=== PATIENT | male | born 1945 | race Caucasian/White ===

== ENCOUNTER 2018-01-05 09:45 | Emergency (ER) | payer OTHER, MEDICARE ==
[~2018-01-05] VITALS: Ht 177.8 cm; Wt 72.6 kg
[~2018-01-05 09:45] MED LIST: FLOMAX0.4 M1 PO; OXYCODONE5 MG PO; ZOLPIDEM TART12.5 MG PO
--- NOTE | 2018-01-05 10:19 | ED CARDIAC/CP/PALPITATIONS ---
History of Present Illness General Chief Complaint: Chest Pain Stated Complaint: CHEST PAIN Source: patient, old records Exam Limitations: no limitations Vital Signs & Intake/Output Vital Signs & Intake/Output Vital Signs Date Time Temp Pulse Resp B/P B/P Pulse O2 O2 Flow FiO2 Mean Ox Delivery Rate 01/05 1552 97.8 78 18 122/72 99 01/05 1213 97.5 76 18 91/62 98 01/05 0954 98.4 82 18 106/68 98 Room Air Allergies Coded Allergies: NO KNOWN ALLERGIES (05/14/11) Reconcile Medications Amiodarone (Cordarone) 200 MG TAB 0.5 TAB PO DAILY HEART (Reported) Apixaban (Eliquis) 5 MG TABLET 1 TAB PO BID BLOOD THINNER (Reported) Aspirin (Ecotrin*) 81 MG TABLET.DR 1 TAB PO DAILY HEART HEALTH (Reported) Bumetanide 2 MG TABLET 1 TAB PO DAILY UNKNOWN (Reported) Metoprolol Succ XL (Toprol XL) 25 MG TAB 3 TAB PO DAILY HEART (Reported) Pantoprazole Sodium 40 MG TABLET.DR 1 TAB PO DAILY GI (Reported) Potassium Chloride 20 MEQ TAB.ER.PRT 2 TAB PO DAILY SUPPLEMENT (Reported) Pravastatin Sodium (Pravachol) 20 MG TABLET 1 TAB PO DAILY CHOLESTEROL ( Reported) Tamsulosin HCl (Flomax) 0.4 MG CAP.ER.24H 1 CAP PO DAILY BPH (Reported) Triage Note: C/O LEFT SIDED CHEST TIGHTNESS SINCE 444, DENIES DIZZINESS OR SOB. REPORTS HE HAS A CATHETER IN HIS LEFT CHEST, DRAINS FLUID FROM HEART AND LUNGS QOD BY [facility]. 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 yes Onset: Abrupt Duration: hour(s):, gone now, intermittent Timing: multiple episodes today Quality/Severity: severe, sharp, stabbing Radiation: no radiation Activities at Onset: rolling over in bed HPI: Patient presents for evaluation of 3 episodes of chest pain since 445 this morning. Patient states the pain began after rolling over in bed. The pain lasted about 10-12 seconds and then subsided. He went to breakfast but then while driving home felt a repeat of the pain. This episode lasted about 15-20 seconds. He then began to take a shower and had a third episode, or tries as mild and lasting a much briefer duration. Patient denies any associated diaphoresis or radiation of the pain to the jaw or left upper extremity. Past History Travel History Traveled to [place] past 21 day No Medical History Any Pertinent Medical History? see below for history Cardiovascular: hypertension, hyperlipidemia Musculoskeletal: osteoarthritis Tetanus Vaccine: 11/09/13 Surgical History Surgical History: thoracostomy Psychosocial History What is your primary language Congolese Tobacco Use: Never used ETOH Use: occasional use Family History Hx Contributory? No Review of Systems Review of Systems Constitutional: Reports: no symptoms. EENTM: Reports: no symptoms. Respiratory: Reports: no symptoms. Cardiovascular: Reports: chest pain. GI: Reports: no symptoms. Genitourinary: Reports: no symptoms. Musculoskeletal: Reports: no symptoms. Skin: Reports: no symptoms. Neurological/Psychological: Reports: no symptoms. Hematologic/Endocrine: Reports: no symptoms. Immunologic/Allergic: Reports: no symptoms. All Other Systems: Reviewed and Negative Physical Exam Physical Exam Cardiovascular: see below Comments: Gen.: Well-nourished, well-developed, no acute respiratory distress. Head: Normocephalic, atraumatic. Eyes: Normal inspection bilaterally Ears: Normal inspection bilaterally Nose: Normal inspection Throat/mouth : Moist mucosa Neck: Supple, full range of motion, no goiter Heart: Regular rate and rhythm, no murmurs rubs or gallops Lungs: Clear to auscultation over the right chest, decreased breath sounds the base of the left chest posteriorly Chest: Nontender Back: Normal range of motion Abdomen: Soft, nontender, nondistended, normal bowel sounds Extremities: Normal range of motion grossly, equal radial pulses, no cyanosis clubbing or edema Neurologic: Cranial nerves grossly intact, speech is clear Skin: warm and dry Psychiatric: Calm, cooperative, no apparent delusions or hallucinations Core Measures ACS in differential dx? No CVA/TIA Diagnosis No Sepsis Present: No Sepsis Focused Exam Completed? No Progress Differential Diagnosis: CT, unstable angina, pulmonary embolism, aortic dissection, pneumonia, pneumothorax, pleural effusion, musculoskeletal strain Plan of Care: Orders Procedure Date/time Status TROPONIN LEVEL 01/05 1345 Complete EKG 01/05 1345 Active Add-on Test (ER Only) 01/05 1043 Active D-DIMER 01/05 1019 Complete TROPONIN LEVEL 01/05 0947 Complete COMPREHENSIVE METABOLIC PANEL 01/05 0947 Complete CBC WITHOUT DIFFERENTIAL 01/05 0947 Complete EKG 01/05 0945 Active Laboratory Tests 01/05/18 1521: Troponin I < 0.01 01/05/18 1019: Anion Gap 9, Estimated GFR > 60, BUN/Creatinine Ratio 25.5 H, Glucose 110 H, Calcium 8.8, Total Bilirubin 1.8 H, AST 52, ALT 51, Alkaline Phosphatase 252 H , Troponin I < 0.01, Total Protein 6.8, Albumin 3.4 L, Globulin 3.4, Albumin/ Globulin Ratio 1.0 L, D-Dimer High Sensitivty 544 H, CBC w Diff NO MAN DIFF REQ, RBC 3.79 L, MCV 85.7, MCH 28.5, MCHC 33.2, RDW 19.7 H, MPV 9.3, Gran % 76.5 H, Lymphocytes % 10.2 L, Monocytes % 11.8 H, Eosinophils % 1.2, Basophils % 0.3, Absolute Granulocytes 5.2, Absolute Lymphocytes 0.7 L, Absolute Monocytes 0.8 H, Absolute Eosinophils 0.1, Absolute Basophils 0 Diagnostic Imaging: Discussed w/RAD: CT Scan. Radiology Impression: no acute abnormality CXR Impression: PATIENT: BRUCE SPENCE PRESENT AGE: 72 PATIENT ACCOUNT NO: [id number] : 46 LOCATION: [facility] ORDERING PHYSICIAN: Salty SALINAS SERVICE DATE: 01/05/18 EXAM TYPE: RAD - XRY-CHEST XRAY, TWO VIEWS EXAMINATION: XR CHEST CLINICAL INFORMATION: Chest pain. Assess for pneumonia or congestive heart failure. COMPARISON: There are no recent prior studies available for comparison. TECHNIQUE: Frontal and lateral views of the chest were obtained. FINDINGS: The lungs are hyperexpanded with flattening of the hemidiaphragms and retrosternal air trapping. There are coarse interstitial markings in the lungs bilaterally. There is pleural thickening versus pleural effusion at the left base, and there is a catheter/tube coiled left lower chest anteriorly, which appears to extend into the left pleural region. The cardiac silhouette is normal in size, but has a slightly globular configuration. Apparent prominence of the left hilum may be due to patient rotation. The central pulmonary vasculature appears normal. Median sternotomy wires and sequelae of CABG are demonstrated. There is a left atrial appendage clip. IMPRESSION: 1. There is a catheter/tube coiled in the left lower chest anteriorly which appears to extend into the pleural region. There is left pleural thickening/pleural loculation. Correlate with surgical history. 2. The cardiac silhouette is globular, but is normal in size. There are sequelae of prior median sternotomy and CABG. There is a left atrial appendage clip. DICTATED BY: Joss Cruz MD DATE/TIME DICTATED:01/05/181037 SCANNING TECH :NILAM DATE/TIME TRANSCRIBED:01/05/181037 CONFIDENTIAL, DO NOT COPY WITHOUT APPROPRIATE AUTHORIZATION. <Electronically signed in Other Vendor System> SIGNED BY: Joss Cruz MD 01/05/18 1055 Initial ED EKG: NSR, no ST T wave changes (INFERIORLY AND LATERALLY) Prior EKG: changed Comments: 01/05/2018 10:19:39 AM patient is pain-free currently. Patient states that when he is not having the episodes of pain he has no symptoms. 10:40AM PATIENT'S CASE DISCUSSED WITH DR. Burleson. HE HAD A NL ECHO IN AUGUST. Dr. Burleson denies that the patient is ever had a pericardial effusion. He feels given the clinical presentation that it is unlikely patient is having an acute coronary syndrome, pericardial effusion or aortic disease. However given his history felt it prudent to repeat an EKG and troponin. He has also suggested a d-dimer. After reviewing a prior, more recent EKG, Dr. Burleson confirms that the patient did have similar changes (inverted T waves and mild ST segment depressions inferiorly) on a prior EKG. 01/05/2018 12:12:50 PM I have updated Bruce on test results. I have likewise updated Dr. Burleson. Given the elevated d-dimer I will recommend CT to rule out PE along with repeat EKG and troponin. Patient is aware that [facility] has no CAT scan capability at this time and that he will be transferred to [facility] for the CTA. 01/05/2018 5:14:54 PM I have updated Bruce on test results. He offers no complaint at this time. Given the repeat EKG and troponin I feel he is now stable for outpatient management. His primary care physician and specialist. Departure Departure Disposition: HOME OR SELF CARE Condition: Stable Clinical Impression Primary Impression: Atypical chest pain Referrals: Yasmine FRAZIER,Efra Rhodes (PCP/Family) Additional Instructions: Continue your current medications. Follow-up with your primary care physician for reevaluation tomorrow. Return if any concerns or sudden worsening. Please note that there might be incidental findings in your evaluation that are unrelated to the current emergency department visit. Please notify your primary care doctor about this emergency department visit in order to obtain and review all of the testing performed so that these incidental findings can be monitored as needed. If you had an x-ray performed, please understand that some fractures or other findings may not be seen on the initial set of x-rays. If your symptoms persist you might need a repeat set of x-rays to check for such a fracture. If you had a laceration evaluated, please understand that foreign bodies such as glass or wood may not be visible to the naked eye or on plain x-rays. If the wound becomes red, swollen, increasingly more painful or if there is any drainage from the wound, please have it reevaluated by a physician for the possibility of a retained foreign body. If you're unable to follow up as outlined in the discharge instructions please return to the emergency department. Thank you for choosing the [facility] Emergency Department for your care. It was a pleasure to serve you today. Ab Peoples M.D. [facility] Departure Forms: Customer Survey General Discharge Information Critical Care Note Critical Care Note Critical Care Time: non-applicable
[2018-01-05 10:33] LABS: ABSOLUTE BASOPHIL COUNT 0 /CUMM (0.0-0.2); ABSOLUTE EOSINOPHIL COUNT 0.1 /CUMM (0.0-0.7); ABSOLUTE GRANULOCYTE CT 5.2 /CUMM (1.4-6.5); ABSOLUTE LYMPH COUNT 0.7 /CUMM (1.2-3.4); ABSOLUTE MONOCYTE COUNT 0.8 /CUMM (0.10-0.60); BASOPHIL % 0.3 % (0.0-2.0); EOSINOPHIL % 1.2 % (0-5); GRANULOCYTE % 76.5 % (42.2-75.2); HEMATOCRIT 32.5 % (42-52); MEAN CORPUSCULAR HGB 28.5 PG (27.0-31.0); MEAN CORPUSCULAR HGB CONC 33.2 G/DL (33.0-37.0); MEAN CORPUSCULAR VOLUME 85.7 FL (80.0-94.0); MEAN PLATELET VOLUME 9.3 FL (7.4-10.4); PLATELET COUNT 213 /CUMM (130-400); RBC DISTRIBUTION WIDTH 19.7 % (11.5-14.5); RED BLOOD CELL CT 3.79 /CUMM (4.70-6.10); WHITE BLOOD CELL COUNT 6.8 /CUMM (4.8-10.8)
--- NOTE | 2018-01-05 10:55 | RADIOLOGY REPORT ---
EXAMINATION: XR CHEST CLINICAL INFORMATION: Chest pain. Assess for pneumonia or congestive heart failure. COMPARISON: There are no recent prior studies available for comparison. TECHNIQUE: Frontal and lateral views of the chest were obtained. FINDINGS: The lungs are hyperexpanded with flattening of the hemidiaphragms and retrosternal air trapping. There are coarse interstitial markings in the lungs bilaterally. There is pleural thickening versus pleural effusion at the left base, and there is a catheter/tube coiled left lower chest anteriorly, which appears to extend into the left pleural region. The cardiac silhouette is normal in size, but has a slightly globular configuration. Apparent prominence of the left hilum may be due to patient rotation. The central pulmonary vasculature appears normal. Median sternotomy wires and sequelae of CABG are demonstrated. There is a left atrial appendage clip. IMPRESSION: 1. There is a catheter/tube coiled in the left lower chest anteriorly which appears to extend into the pleural region. There is left pleural thickening/pleural loculation. Correlate with surgical history. 2. The cardiac silhouette is globular, but is normal in size. There are sequelae of prior median sternotomy and CABG. There is a left atrial appendage clip.
[2018-01-05] MEDS ORDERED: AMIODARONE HCL200 M1 PO (11:03)
[2018-01-05] MEDS ORDERED: BUMETANIDE2 M1 PO (11:04)
[2018-01-05] MEDS ORDERED: ASPIRIN EC81 M1 PO (11:04)
[2018-01-05] MEDS ORDERED: ELIQUIS5 M1 PO (11:04)
[2018-01-05] MEDS ORDERED: PRAVACHOL20 M2 PO (11:05)
[2018-01-05] MEDS ORDERED: TOPROL XL25 M1 PO (11:05)
[2018-01-05] MEDS ORDERED: PANTOPRAZOLE SO40 M1 PO (11:05)
[2018-01-05] MEDS ORDERED: POTASSIUM CHLO20 ME2 PO (11:05)
[2018-01-05 15:52] VITALS: BP 122/72
== END 2018-01-05 17:25 | disposition short-term general hospital (02) ==
LOC: ERH 09:45
PROVIDERS: Physician Assistant Medical
DX: R07.89 Other chest pain (principal); I10 Essential (primary) hypertension; Z79.01 Long term (current) use of anticoagulants
CPT/HCPCS: 71046; 93005; 93010